=== PATIENT | female | born 1995 | race Caucasian/White ===

== ENCOUNTER 2019-01-19 06:30 | Day surgery (SDC) | payer BC ==
[~2019-01-19 06:30] MED LIST: CEFAZOLIN 2 GM/50 ML (PMX) 50 ML IVPB
[2019-01-19] MEDS: SOD CHLORIDE 0.9% 1,000 ML IV (08:06)
[2019-01-19] MEDS ORDERED: FENTAnyl 50 MCG/ML VIAL (09:53)
[2019-01-19] MEDS ORDERED: MIDAZOLAM 1 MG/ML 2 ML INJ (09:53)
[2019-01-19] MEDS ORDERED: ONDANSETRON 4 MG INJ IV (10:00)
[2019-01-19] MEDS ORDERED: DIPHENHYDRAMINE 50 MG INJ IV (10:00)
[2019-01-19] MEDS ORDERED: FENTAnyl 50 MCG/ML VIAL IV ×2 (10:00)
[2019-01-19] MEDS ORDERED: HYDROmorphONE 1 MG/5 ML IV SYRINGE IV ×2 (10:00)
[2019-01-19] MEDS ORDERED: MEPERIDINE 25 MG INJ IV (10:00)
[2019-01-19] MEDS ORDERED: PROCHLORPERAZINE 10 MG INJ IV (10:00)
[2019-01-19] MEDS ORDERED: LIDOCAINE 2% (SDV) 5 ML INJ (10:01)
[2019-01-19] MEDS ORDERED: ROPIVACAINE 0.5 % 30 ML VIAL (10:01)
[2019-01-19] MEDS ORDERED: PROPOFOL 20 ML ×2 (10:01→10:11)
[2019-01-19] MEDS ORDERED: ONDANSETRON 4 MG INJ (10:12)
[2019-01-19] MEDS ORDERED: DEXAMETHASONE 4 MG/ML 5 ML INJ (10:12)
[2019-01-19] MEDS ORDERED: CEFAZOLIN 1 GM INJ (10:12)
[2019-01-19] MEDS ORDERED: ROCURONIUM 50 MG INJ (10:12)
[2019-01-19] MEDS ORDERED: FAMOTIDINE 20 MG INJ (10:12)
[2019-01-19] MEDS ORDERED: SUCCINYLCHOLINE CHLORIDE 100 MG/5 ML SYG IV (10:12)
[2019-01-19] MEDS ORDERED: SUGAMMADEX SODIUM 200 MG/2 ML VIAL IV (10:35)
[2019-01-19] MEDS ORDERED: KETOROLAC 30 MG INJ (10:36)
[2019-01-19] MEDS: FENTAnyl 50 MCG/ML VIAL IV (11:07)
[2019-01-19] MEDS: HYDROmorphONE 1 MG/5 ML IV SYRINGE IV (11:09)
[2019-01-19] MEDS: HYDROCODONE/APAP (5/325) TAB PO (12:46)
== END 2019-01-19 13:47 | disposition home or self-care (01) ==
LOC: SDS 06:30
DX: K80.10 Calculus of gallbladder with chronic cholecystitis without obstruction (principal)
CPT/HCPCS: 47562; 84703; 88304